=== PATIENT | male | born 1975 | race African-American/Black ===

== ENCOUNTER 2023-06-05 16:46 | Emergency (ER) | payer MEDICAID, OTHER ==
[~2023-06-05] VITALS: Ht 175.3 cm; Wt 68.0 kg
[2023-06-05] MEDS: KETAMINE HCL 50 MG/ML 10ML IV ONE (18:45)
[2023-06-05] MEDS: PROPOFOL 200MG/20ML VIAL IV ONE (20:44)
[2023-06-05] MEDS: MORPHINE SULFATE 4 MG/ML INJ (FOR IV/IM USE) IV ONE (20:44)
[2023-06-05 20:45] VITALS: O2SAT 100
[2023-06-05 22:15] VITALS: BP 129/86; PULSE 78; RESP 13; TEMP 97.3
== END 2023-06-06 00:14 | disposition left against medical advice (07) ==
LOC: ER 16:46
DX: S43.005A Unspecified dislocation of left shoulder joint, initial encounter (principal); F15.10 Other stimulant abuse, uncomplicated; J45.909 Unspecified asthma, uncomplicated; X50.9XXA Other and unspecified overexertion or strenuous movements or postures, initial encounter; Y93.89 Activity, other specified; Y92.89 Other specified places as the place of occurrence of the external cause; Y99.8 Other external cause status; Z88.0 Allergy status to penicillin
CPT/HCPCS: 73030; 23650; 96374; 99152; 99285; J3490; J2704; J2270; Z7610 ×3; A4565; L3670